=== PATIENT | male | born 1990 | race African-American/Black ===

== ENCOUNTER 2017-01-20 11:48 | Emergency (ER) | payer OTHER, SELFPAY ==
[2017-01-20] MEDS ORDERED: Ketorolac Tromethamine 30 MG/ML VIAL ONE (13:38)
[2017-01-20] MEDS ORDERED: Metoclopramide HCl 10 MG/2 ML VIAL ONE (13:38)
== END 2017-01-20 14:48 | disposition home or self-care (01) ==
LOC: ERS 11:48
DX: R51 Headache (principal)
CPT/HCPCS: 96365; 96375; J1885; J2765

== ENCOUNTER 2017-05-17 07:39 | Emergency (ER) | payer OTHER, SELFPAY ==
[2017-05-17] MEDS ORDERED: Ondansetron ODT 4 MG TAB ONE (08:08)
[2017-05-17] MEDS ORDERED: Dicyclomine 20 MG TAB ONE (08:08)
== END 2017-05-17 08:32 | disposition home or self-care (01) ==
LOC: ERS 07:39
DX: R11.2 Nausea with vomiting, unspecified (principal); R19.7 Diarrhea, unspecified
CPT/HCPCS: 99283; Q0162

== ENCOUNTER 2017-09-04 00:48 | Emergency (ER) | payer SELFPAY ==
[2017-09-04] MEDS ORDERED: Enoxaparin Sodium 60 MG/0.6 ML SYRINGE ONE (02:54)
[2017-09-04] MEDS ORDERED: Meclizine HCl 25 MG TAB ONE (02:54)
== END 2017-09-04 03:30 | disposition home or self-care (01) ==
LOC: ERS 00:48 → EEVIPCON 00:48 → ERS 03:30
DX: J30.9 Allergic rhinitis, unspecified (principal); R42 Dizziness and giddiness
CPT/HCPCS: 93005; J1650

== ENCOUNTER 2017-10-28 05:55 | Emergency (ER) | payer SELFPAY ==
[2017-10-28] MEDS ORDERED: Ketorolac Tromethamine 30 MG/ML VIAL ONE (06:42)
[2017-10-28 07:16] LABS: ALT (SGPT) 18 U/L (8-55); AST (SGOT) 27 U/L (5-34); Albumin 4.3 g/dL (3.5-5.0); Alkaline Phosphatase 50 U/L (40-150); Anion Gap 13 mmol/L (10-20); BUN (Urea Nitrogen) 11 mg/dL (8.9-20.6); Bilirubin, Direct 0.2 mg/dL (0.1-0.3); Bilirubin, Total 0.6 mg/dL (0.2-1.2); CK (CPK) 778 U/L (30-200); Calc. Creatinine Clearance 0 mL/min (70-130); Calcium 9.7 mg/dL (7.8-10.44); Carbon Dioxide 26 mmol/L (22-29); Chloride 106 mmol/L (98-107); Estimated GFR-MDRD Greater than 90; Glucose 102 mg/dL (70-105); Lipase 16 U/L (8-78); Potassium 3.5 mmol/L (3.5-5.1); Protein, Total 7.5 g/dL (6.0-8.3); Sodium 141 mmol/L (136-145)
[2017-10-28 07:31] LABS: Hemoglobin 13.4 g/dL (14.0-18.0); Mean Corpuscular HGB CONC 33.6 g/dL (32.0-36.0); Mean Corpuscular Hemoglobin 30.7 pg (27.0-31.0); Mean Corpuscular Volume 91.4 fL (78.0-98.0); Mean Platelet Volume 6.9 fL (7.4-10.4); Platelet Count 247 thou/uL (130-400); RBC Distribution Width 11.8 % (11.5-14.5); Red Blood Cell (RBC) Count 4.38 mill/uL (4.70-6.10)
[2017-10-28 07:39] LABS: Eosinophils 4 % (0-10); Lymphocytes 34 % (21-51); MDiff Complete? YES; Monocytes 10 % (0-10); Neutrophil 44 % (42-75); PLT Morphology Comment Appears Adequate; RBC Morphology Normal; Reactive Lymphocytes 8 % (0-10)
[2017-10-28 07:49] LABS: Bilirubin Negative (Negative); Blood, Urine Negative (Negative); Clarity CLEAR (Clear); Glucose, Urine (Dipstick) Negative (Negative); Leukocyte Negative (Negative); Nitrite Negative (Negative); Protein, Urine (Dipstick) Negative (Neg-Trace); Specific Gravity, Urine 1.011 (1.002-1.036); Urobilinogen 0.2 mg/dL (0.2-1.0); pH, Urine 6.5 (5.0-9.0)
== END 2017-10-28 08:00 | disposition home or self-care (01) ==
LOC: ERS 05:55
DX: K92.1 Melena (principal); R51 Headache; F41.9 Anxiety disorder, unspecified
CPT/HCPCS: 80048; 80076; 81003; 82274; 82550; 83690; 85025; 96361; 96374; J1885

== ENCOUNTER 2019-06-24 17:13 | Emergency (ER) | payer SELFPAY | END 2019-06-24 17:53 | disposition home or self-care (01) | LOC: ERS 17:13 | DX: Z77.9 Other contact with and (suspected) exposures hazardous to health (principal); J45.909 Unspecified asthma, uncomplicated; I10 Essential (primary) hypertension; F41.9 Anxiety disorder, unspecified | CPT/HCPCS: 99284 ==

== ENCOUNTER 2022-03-08 20:26 | Emergency (ER) | payer SELFPAY ==
[2022-03-08] MEDS ORDERED: Ibuprofen 800 MG TAB ONE (23:30)
== END 2022-03-08 23:40 | disposition home or self-care (01) ==
LOC: ERS 20:26
DX: S93.401A Sprain of unspecified ligament of right ankle, initial encounter (principal); M19.071 Primary osteoarthritis, right ankle and foot; I10 Essential (primary) hypertension; Y93.31 Activity, mountain climbing, rock climbing and wall climbing

== ENCOUNTER 2022-05-11 22:20 | Emergency (ER) | payer OTHER, SELFPAY ==
[2022-05-11] MEDS ORDERED: Lidocaine 1% PF 5 ML VIAL ONE ×2 (23:33→23:51)
[2022-05-12] MEDS ORDERED: Bacitracin 1 PK ONE (00:14)
== END 2022-05-12 01:24 | disposition home or self-care (01) ==
LOC: ERS 22:20
DX: S91.311A Laceration without foreign body, right foot, initial encounter (principal); W22.09XA Striking against other stationary object, initial encounter; Y92.830 Public park as the place of occurrence of the external cause
CPT/HCPCS: 12002

== ENCOUNTER 2022-10-18 15:01 | Emergency (ER) | payer SELFPAY ==
[2022-10-18] MEDS ORDERED: Carbamide Peroxide 6.5% Otic Drops 15 ml Bottle ONE (15:20)
== END 2022-10-18 15:45 | disposition home or self-care (01) ==
LOC: ERS 15:01
DX: H61.21 Impacted cerumen, right ear (principal)
CPT/HCPCS: 69209

== ENCOUNTER 2023-05-25 00:27 | Emergency (ER) | payer SELFPAY ==
[2023-05-25 01:21] LABS: #Eosinphils 0.2 thou/uL (0.0-0.7); #Monocytes 0.6 thou/uL (0.11-0.59); %Basophils 0.4 % (0.0-1.0); %Eosinophils 3.2 % (0.0-10.0); %Lymphocytes 45.5 % (21.0-51.0); %Monocytes 8.3 % (0.0-10.0); %Neutrophils 42.3 % (42.0-75.0); Hematocrit 40.5 % (42.0-52.0); Hemoglobin 13.1 g/dL (14.0-18.0); Mean Corpuscular HGB CONC 32.3 g/dL (32.0-36.0); Mean Corpuscular Hemoglobin 28.9 pg (27.0-31.0); Mean Corpuscular Volume 89.4 fl (78.0-98.0); Mean Platelet Volume 9.2 fL (7.4-10.4); Platelet Count 307 10x3/uL (130-400); RBC Distribution Width 13.2 % (11.5-14.5); Red Blood Cell (RBC) Count 4.53 mill/uL (4.70-6.10)
[2023-05-25 01:37] LABS: PTT 29.4 sec (22.9-36.1); Prothrombin Time 13.1 sec (12.0-14.7)
[2023-05-25 01:40] LABS: Troponin I 0.027 ng/mL (< 0.028)
[2023-05-25 01:45] LABS: ALT (SGPT) 29 U/L (8-55); AST (SGOT) 25 U/L (5-34); Albumin 4.1 g/dL (3.5-5.0); Alkaline Phosphatase 58 U/L (40-110); Anion Gap 10 mmol/L (10-20); BUN (Urea Nitrogen) 15 mg/dL (8.9-20.6); Bilirubin, Total 0.3 mg/dL (0.2-1.2); Calc. Creatinine Clearance 0 mL/min (70-130); Calcium 9.9 mg/dL (7.8-10.44); Carbon Dioxide 29 mmol/L (22-29); Chloride 104 mmol/L (98-107); Estimated GFR 97; Globulin 3.5 g/dL (2.4-3.5); Glucose 90 mg/dL (70-105); Lipase 24 U/L (8-78); Potassium 4.1 mmol/L (3.5-5.1); Protein, Total 7.6 g/dL (6.0-8.3); Sodium 139 mmol/L (136-145)
== END 2023-05-25 02:57 | disposition home or self-care (01) ==
LOC: ERS 00:27
DX: K62.89 Other specified diseases of anus and rectum (principal); K64.4 Residual hemorrhoidal skin tags; Z55.6 Problems related to health literacy
CPT/HCPCS: 36415; 80053; 83690; 84484; 85025; 85610; 85730; 86850; 86900; 86901; 93005